=== PATIENT | female | born 1940 | race Caucasian/White ===

== ENCOUNTER 2018-12-28 11:08 | Emergency (ER) | payer BC, MEDICARE ==
--- NOTE | 2018-12-28 11:59 | EDM.PDOC ---
ED HPI GENERAL MEDICAL PROBLEM - General Chief Complaint: Back Pain or Injury Stated Complaint: LOWER BACK PAIN INTO LEFT LEG Time Seen by Provider: 12/28/18 11:40 Source of Information: Reports: Patient History Limitations: Reports: Other (no old records) - History of Present Illness INITIAL COMMENTS - FREE TEXT/NARRATIVE: 78 yo female presents with a few day hx of sacral pain that began after unloading, loading, and cleaning out her freezer. Some radiation down her L leg that is not made worse by coughing. Is taking Aleve and a Lidoderm patch without relief. Has no local provider as she is only a summer resident. No bowel or bladder incontinence. 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 Left Lower Back Pain Score (Numeric/FACES): 8 Left Leg Pain Score (Numeric/FACES): 3 - Related Data Allergies Allergy/AdvReac Type Severity Reaction Status Date / Time No Known Allergies Allergy Verified 12/28/18 11:27 Home Meds: Home Meds NK [No Known Home Meds] 12/28/18 [History] Past Medical History Musculoskeletal History: Reports: None - Past Surgical History Head Surgeries/Procedures: Reports: None HEENT Surgical History: Reports: Other (See Below) Other HEENT Surgeries/Procedures: lense implants Musculoskeletal Surgical History: Reports: Other (See Below) Other Musculoskeletal Surgeries/Procedures:: knee Dermatological Surgical History: Reports: None Social & Family History - Tobacco Use Smoking Status *Q: Former Smoker Used Tobacco, but Quit: Yes Month/Year Tobacco Last Used: 1967 - Caffeine Use Caffeine Use: Reports: Coffee - Alcohol Use Days Per Week of Alcohol Use: 7 Number of Drinks Per Day: 2 Total Drinks Per Week: 14 - Recreational Drug Use Recreational Drug Use: No ED ROS GENERAL - Review of Systems Review Of Systems: See Below Constitutional: Reports: No Symptoms HEENT: Reports: No Symptoms Respiratory: Reports: No Symptoms Cardiovascular: Reports: No Symptoms GI/Abdominal: Reports: No Symptoms : Reports: No Symptoms Musculoskeletal: Reports: Back Pain (low) Skin: Reports: No Symptoms Neurological: Reports: Other (Some radiation down the left leg.) ED EXAM,LOWER BACK PAIN/INJURY - Physical Exam Exam: See Below Exam Limited By: No Limitations General Appearance: Alert, WD/WN, No Apparent Distress, Thin Eye Exam: Bilateral Eye: Normal Inspection Ears: Normal External Exam, Normal Canal, Hearing Grossly Normal Nose: Normal Inspection, No Blood Throat/Mouth: Normal Inspection, Normal Lips, Normal Voice, No Airway Compromise Head: Atraumatic, Normocephalic Neck: Normal Inspection Respiratory/Chest: No Respiratory Distress, Lungs Clear, Normal Breath Sounds, No Accessory Muscle Use Cardiovascular: Regular Rate, Rhythm, No Edema Back Exam: Normal Inspection, Other (sacral tenderness, no SI joint pain, Some L sciatic notch pain, Straight leg raising negative). No: CVA Tenderness (R), CVA Tenderness (L), Paraspinal Tenderness, Vertebral Tenderness Extremities: Normal Inspection, Normal Range of Motion, Non-Tender, No Pedal Edema Neurological: Alert, Normal Mood/Affect, Normal Dorsiflexion, CN II-XII Intact, Normal Plantar Flexion, No Motor/Sensory Deficits, Oriented x 3, Other ( hyporeflexive bilat at knees and ankles) DTR - Lower Extremities: 1+: Knee (R), Knee (L), Ankle (R), Ankle (L) Psychiatric: Normal Affect, Normal Mood Skin Exam: Warm, Dry, Intact, Normal Color, No Rash Course - Vital Signs Last Recorded V/S: Last Vital Signs Temp 36.2 C 12/28/18 11:33 Pulse 78 12/28/18 11:33 Resp 16 12/28/18 11:33 BP 163/79 H 12/28/18 11:33 Pulse Ox 97 12/28/18 11:33 Departure - Departure Time of Disposition: 11:59 Disposition: Home, Self-Care 01 Condition: Fair Clinical Impression: Sacral pain - Discharge Information *PRESCRIPTION DRUG MONITORING PROGRAM REVIEWED*: No *COPY OF PRESCRIPTION DRUG MONITORING REPORT IN PATIENT HENRI: No Referrals: PCP,None [Primary Care Provider] - Additional Instructions: Continue present cares. Add [place] 1 every 4 hrs as needed. No lifting, bending, or twisting. Try moist heat to area and/or massage. F/U in the [facility], they may be able to set you up for PT there.
== END 2018-12-28 12:06 | disposition home or self-care (01) ==
LOC: JP.ED 11:08
DX: M53.3 Sacrococcygeal disorders, not elsewhere classified (principal); Z87.891 Personal history of nicotine dependence
CPT/HCPCS: 99283

== ENCOUNTER 2019-01-03 09:20 | Emergency (ER) | payer MEDICARE ==
[2019-01-03] MEDS ORDERED: Ketorolac 60 MG/2 ML SDV IM ONE (09:38)
--- NOTE | 2019-01-03 09:47 | EDM.PDOC ---
ED HPI GENERAL MEDICAL PROBLEM - General Chief Complaint: Back Pain or Injury Stated Complaint: MEDICAL [facility] Time Seen by Provider: 01/03/19 09:30 Source of Information: Reports: Patient, EMS History Limitations: Reports: No Limitations - History of Present Illness INITIAL COMMENTS - FREE TEXT/NARRATIVE: 70-year-old female brought in by ambulance with worsening intractable low back pain. It started 2 weeks ago when she was doing some work moving some small appliances when she felt a pull in her back. She did not fall or have any sudden traumatic experience. Since that time she has been slowly developing worsening low back pain which is becoming incapacitating. She was seen in the emergency room last week, given hydrocodone but over the past 24 hours she's now developed paresthesias in her lower extremities, particularly the feet, and last evening had to crawl to bed. This morning she was unable to ambulate so called the ambulance. No incontinence. She's had no past history of severe back problems. 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) (She has tried narcotics, Tylenol and anti-inflammatories) Bilateral Leg Pain Score (Numeric/FACES): 4 - Related Data Allergies Allergy/AdvReac Type Severity Reaction Status Date / Time No Known Allergies Allergy Verified 01/03/19 09:39 Home Meds: Home Meds Acetaminophen/HYDROcodone [[place] 325-5 MG] 1 - 2 tab PO Q6H PRN #20 tab [Rx] Past Medical History Musculoskeletal History: Reports: None - Past Surgical History Head Surgeries/Procedures: Reports: None HEENT Surgical History: Reports: Other (See Below) Other HEENT Surgeries/Procedures: lense implants Musculoskeletal Surgical History: Reports: Other (See Below) Other Musculoskeletal Surgeries/Procedures:: knee Social & Family History - Tobacco Use Smoking Status *Q: Never Smoker - Caffeine Use Caffeine Use: Reports: Coffee - Alcohol Use Days Per Week of Alcohol Use: 7 Number of Drinks Per Day: 1 Total Drinks Per Week: 7 - Recreational Drug Use Recreational Drug Use: No ED ROS GENERAL - Review of Systems Review Of Systems: See Below Constitutional: Denies: Fever, Chills HEENT: Reports: No Symptoms Respiratory: Denies: Shortness of Breath Cardiovascular: Denies: Chest Pain GI/Abdominal: Denies: Abdominal Pain, Nausea, Vomiting Musculoskeletal: Reports: Back Pain Skin: Reports: No Symptoms Neurological: Reports: Paresthesia (Paresthesias in both feet) ED EXAM,LOWER BACK PAIN/INJURY - Physical Exam Exam: See Below Exam Limited By: No Limitations General Appearance: Alert, No Apparent Distress Head: Atraumatic Neck: Supple, Non-Tender Respiratory/Chest: Lungs Clear Cardiovascular: Regular Rate, Rhythm Back Exam: Paraspinal Tenderness (Very tender to palpation over the lumbar spine , especially the paralumbar area of the left side into the left buttock) Extremities: Other (Dorsiflexion of the left foot feels weaker than the right, plantar flexion is symmetric. No objective reproducible numbness of the feet) Neurological: Oriented x 3 Psychiatric: Normal Affect, Normal Mood Skin Exam: Warm, Dry Course - Vital Signs Last Recorded V/S: Last Vital Signs Temp 98 F 01/03/19 09:37 Pulse 72 01/03/19 09:37 Resp 16 01/03/19 09:37 BP 151/82 H 01/03/19 13:00 Pulse Ox 96 01/03/19 09:37 - Orders/Labs/Meds Orders: Active Orders 24 hr Category Date Time Status Insert Rushing Catheter [Insert Urinary Catheter] [OM.PC] Care 01/03/19 13:00 Ordered Q24H Urinary Catheter Assessment [RC] ASDIRECTED Care 01/03/19 12:53 Active Meds: Medications Discontinued Medications Generic Name Dose Route Start Last Admin Trade Name Amber PRN Reason Stop Dose Admin Fentanyl 50 mcg 01/03/19 13:51 01/03/19 14:00 Sublimaze IVPUSH 01/03/19 13:52 50 mcg ONETIME ONE Administration Ketorolac Tromethamine 60 mg 01/03/19 09:38 01/03/19 09:44 Toradol IM 01/03/19 09:39 60 mg ONETIME ONE Administration Lorazepam 1 mg 01/03/19 10:08 01/03/19 10:23 Ativan PO 01/03/19 10:09 1 mg ONETIME ONE Administration - Re-Assessments/Exams Free Text/Narrative Re-Assessment/Exam: 01/03/19 09:46 Patient was given 60 mg of IM Toradol. Because of the worsening symptoms, paresthesias, and apparent objective lack of strength with dorsiflexion of the left foot an MRI without contrast of the lumbar spine was ordered. 01/03/19 12:46 Impression : 1. Recent fractures of the upper sacrum with a pattern consistent with acute or subacute insufficiency fractures associated with osteoporosis. 2. 3.5 cm mass or hematoma within presacral space associated with sacral fracture. Neoplasm not excluded. 3. Multilevel lumbar spondylosis most severe at the L4-5 level. There is severe spinal canal stenosis, left lateral recess and foraminal narrowing. No worrisome osseous destructive changes at lumbar levels. 4. Distended urinary bladder suggest neurogenic bladder. 5. Clinical correlation as to any history of primary malignancy. CT scan of the abdomen and pelvis would be useful. Above findings were sent to [facility] for review by neurosurgery. 01/03/19 13:15 After discussion with neurosurgery in [place], she was accepted for transfer at 1 PM. A Rushing catheter was placed along with a saline lock and EMS transfer arranged. Departure - Departure Time of Disposition: 14:13 Disposition: DC/Tfer to Other 70 Clinical Impression: Presacral mass Sacral fracture Qualifiers: Encounter type: subsequent encounter Fracture type: closed Fracture alignment: nondisplaced - Discharge Information Referrals: PCP,None [Primary Care Provider] - Forms: ED Department Discharge Care Plan Goals: Patient will be [facility] to [facility] for further workup and neurosurgical consultation. - My Orders Last 24 Hours: My Active Orders 01/03/19 12:53 Urinary Catheter Assessment [RC] ASDIRECTED 01/03/19 13:00 Insert Rushing Catheter [Insert Urinary Catheter] [OM.PC] Q24H - Assessment/Plan Last 24 Hours: My Active Orders 01/03/19 12:53 Urinary Catheter Assessment [RC] ASDIRECTED 01/03/19 13:00 Insert Rushing Catheter [Insert Urinary Catheter] [OM.PC] Q24H
[2019-01-03] MEDS ORDERED: LORazepam 1 MG Tab PO ONE (10:08)
--- NOTE | 2019-01-03 12:31 | CRLMR ---
INDICATION: 78-year-old female. Pain. Left radiculopathy. TECHNIQUE: Sagittal and axial T1, sagittal axial and coronal T2 and sagittal STIR images. FINDINGS: Exaggerated lumbar lordosis and grade 1 spondylolisthesis at L4-5 and L5-S1. Convex left lumbar scoliotic curve. There are fractures of the bilateral sacral ala with associated bone marrow edema that is more obvious on the left side than the right. There is associated cortical disruption at the anterior cortical margin of the upper S2 segment as seen on sagittal images. There is an adjacent presacral mass or hematoma. At the L5-S1 level degenerative facet arthropathy. Disk desiccation and disk space narrowing without stenosis of the spinal canal. Mild bilateral foraminal narrowing. At L4-5 degenerative disk desiccation grade 1 degenerative anterolisthesis and severe bilateral facet arthropathy. There is resultant moderate to severe spinal canal stenosis there is some impingement of the traversing left greater than right L5 nerve roots. There is moderate left and mild right neural foraminal narrowing. At L3-4 degenerative disc desiccation mild annular bulge and bilateral facet arthropathy without stenosis of the spinal canal or neural foramen. At L2-3 degenerative disc desiccation my help and V without stones spinal canal or neural foramen. At L1-2 degenerative disc desiccation and annular bulge without stenosis of the spinal canal or neural foramen. T12-L1 degenerative disk desiccation mild annular bulge and osteophyte to the right with slight displacement of the traversing right L1 nerve root. No high-grade central stenosis. No disc herniation or stenosis at T11-12 or T12-L1 levels. The distal cord and conus medullaris appear normal. No evidence of an intradural mass. Impression : 1. Recent fractures of the upper sacrum with a pattern consistent with acute or subacute insufficiency fractures associated with osteoporosis. 2. 3.5 cm mass or hematoma within presacral space associated with sacral fracture. Neoplasm not excluded. 3. Multilevel lumbar spondylosis most severe at the L4-5 level. There is severe spinal canal stenosis, left lateral recess and foraminal narrowing. No worrisome osseous destructive changes at lumbar levels. 4. Distended urinary bladder suggest neurogenic bladder. 5. Clinical correlation as to any history of primary malignancy. CT scan of the abdomen and pelvis would be useful. Dictated by Justice Tilley MD @ Jan 03 2019 12:00PM Signed by Dr. Justice Tilley @ Jan 03 2019 12:29PM
[2019-01-03] MEDS ORDERED: fentaNYL 100 MCG/2 ML SDV IVPUSH ONE (13:51)
== END 2019-01-03 14:13 | disposition other institution (70) ==
LOC: JP.ED 09:20
DX: S32.10XD Unspecified fracture of sacrum, subsequent encounter for fracture with routine healing (principal); M53.3 Sacrococcygeal disorders, not elsewhere classified; X58.XXXD Exposure to other specified factors, subsequent encounter
CPT/HCPCS: 51702; 72148; 96372; 96374; 99284; A9270; J1885; J3010